=== PATIENT | female | born 1990 | race Caucasian/White ===

== ENCOUNTER → 2020-03-24 09:29 | Outpatient (BNVA) | payer SELFPAY | PROVIDERS: Visit Provider Urology ==

== ENCOUNTER → 2022-03-22 12:53 | Outpatient (BNVA) | payer BC, SELFPAY | PROVIDERS: PCP Physician Assistant Medical; Visit Provider Nurse Practitioner Family | DX: Z13.89 Encounter for screening for other disorder (principal) ==